=== PATIENT | female | born 1955 | race Caucasian/White ===

== ENCOUNTER 2018-08-21 21:14 | Inpatient (IN) | payer BC, OTHER ==
[~2018-08-21] VITALS: Ht 180.3 cm; Wt 102.7 kg
--- NOTE | 2018-08-21 21:49 | NUR ---
Pt. BIB from [facility] for Medical Clearance to voluntarily admit to MHU, pt. sitting in bed accompanied by , bed in low position, wheels locked,
--- NOTE | 2018-08-21 22:15 | NUR ---
Rad. tech. at bedside for CXR
[2018-08-21] MEDS ORDERED: MECL-102 PO (22:17)
[2018-08-21] MEDS ORDERED: TIOT18CA3 IH (22:17)
[2018-08-21] MEDS ORDERED: METO25CA PO (22:17)
[2018-08-21] MEDS ORDERED: ISOS10TA2 PO (22:17)
[2018-08-21] MEDS ORDERED: NEFA100T PO (22:17)
[2018-08-21] MEDS ORDERED: AMLO5TAB9 PO ×2 (22:17)
[2018-08-21] MEDS ORDERED: VITAMIN D3 PO (22:17)
[2018-08-21] MEDS ORDERED: MAGN400T40 PO (22:17)
[2018-08-21] MEDS ORDERED: APIX5TAB PO (22:17)
[2018-08-21] MEDS ORDERED: TOPI25TA49 PO (22:17)
[2018-08-21] MEDS ORDERED: IRBE300T19 PO (22:17)
[2018-08-21] MEDS ORDERED: GLUC15006 PO (22:17)
[2018-08-21] MEDS ORDERED: FLUT16SP NS (22:17)
[2018-08-21] MEDS ORDERED: FURO-152 PO (22:17)
[2018-08-21] MEDS ORDERED: MULT-213 PO (22:17)
[2018-08-21] MEDS ORDERED: SPIR25TA PO (22:17)
[2018-08-21] MEDS ORDERED: AMIO200T4 PO (22:17)
--- NOTE | 2018-08-21 22:54 | NUR ---
Pt. resting in bed w/ eyes open, awaiting Crisis Evaluation by Joshua Cano, bed in low position, at bedside, NAD
--- NOTE | 2018-08-21 23:07 | NUR ---
Joshua Cano LCSW at bedside for Psych. Eval.,
--- NOTE | 2018-08-21 23:48 | NUR ---
Report given to Maryann, Inventory/belonging sheet filled out and signed by pt., chart copied and sent over w/ all belongings, pt. taken off unit via stretcher to admit to MHU,
[2018-08-21 23:55] VITALS: BP 142/69
[2018-08-22] MEDS ORDERED: MAGNESIUM HYDROXIDE 30 ML LIQUID UDC PO PRN
[2018-08-22] MEDS ORDERED: MAG HYDROX/AL HYDROX/SIMETH 30 ML LIQUID UDC PO PRN
--- NOTE | 2018-08-22 01:42 | NUR ---
Patient arrived via gurney from the ER department at 2345. Patient alert/oriented x 2-3. Patient denies hallucinations at this time, however stated has had some in the past. Patient is easily irritable and agitated. Patient was able to answer questions and sign admission paper. Patient stated that her is looking for an apartment and she has been living in a hotel prior to her admission at [facility]. Patient states she does not want anybody to know that she is her until she speaks to her psychiatrist. Patient states wanting to place her self voluntary to receive proper care to manage her anger to the point of blackening out. Patient prefers having female nurses as "does not take kindly to a male telling her what to do." Patient denies Suicidal Ideation, patient denies pain at this time, will continue to monitor. Patient has edema x1 to bilateral lower extremities. Skin intact. Patient oriented to room. No aggressive or combative behavior noted will continue to monitor and redirect as needed. Bed in lowest position, bed locked, and bed alarm on while in bed. Edy FERMIN notified to reconcile medication, Edy FERMIN spoke with Cleopatra MCCOY.
[2018-08-22 07:30] VITALS: BP 146/78
[2018-08-22] MEDS ORDERED: TEMAZEPAM 7.5 MG CAPSULE PO PRN (09:00)
[2018-08-22] MEDS: LORAZEPAM 0.5 MG TABLET PO PRN (09:07)
[2018-08-22] MEDS: ACETAMINOPHEN 325 MG TABLET PO PRN (09:08)
[2018-08-22] MEDS ORDERED: LORAZEPAM 2 MG/1 ML VIAL IM ONE (10:30)
[2018-08-22] MEDS ORDERED: BENZTROPINE MESYLATE 2 MG/2 ML AMPUL IM SCH (10:30)
[2018-08-22] MEDS ORDERED: HALOPERIDOL LACTATE 5 MG/1 ML VIAL IM ONE (10:30)
[2018-08-22] MEDS ORDERED: AMLODIPINE 5 MG TABLET PO PRN (12:45)
[2018-08-22] MEDS ORDERED: Medication Not On Formulary EA (Metoprolol Succinate (Kapspargo Sprinkle) 25 MG) PO SCH (13:00)
[2018-08-22 16:10] VITALS: BP 115/67
--- NOTE | 2018-08-22 16:40 | NUR ---
UR Note: Avionic Technician faxed clinical information to assigned Director Trial Catalina Brandt at [employer] ( Ext [phone]; ). Avionic Technician updated Director Trial verbally regarding clinicals, patient receiving IM, and newly status of 5150 hold for grave disability. SW awaiting call for authorization.
[2018-08-22] MEDS: FLUTICASONE PROP NASAL SPRAY 16 GM BOTTLE NS SCH (17:14)
--- NOTE | 2018-08-22 18:01 | NUR ---
received patient is labile, non-compliant with staffs pressure speech and challenge attitude. IM given in am due to patient is agitated and aggressive unable to re-direction .
--- NOTE | 2018-08-22 20:01 | NUR ---
Report given to Oly MCCOY. Patient awake, alert sitting up in bed. Transferring to 3rd floor for safe usage of C-pap machine. Patient verbalized understanding of transfer. V.S stable at this time. No acute distress.
[2018-08-22 20:26] VITALS: BP 154/75
[2018-08-22] MEDS: AMLODIPINE 5 MG TABLET PO SCH (21:45)
[2018-08-22] MEDS: DIVALPROEX 250 MG TABLET.DR PO SCH (21:45)
[2018-08-22] MEDS: ISOSORBIDE DINITRATE 10 MG TABLET PO SCH (22:44)
[2018-08-22] MEDS: METOPROLOL SUCCINATE XL 25 MG TAB.SR.24H PO SCH (22:44)
--- NOTE | 2018-08-23 05:41 | NUR ---
Patient was calm and cooperative t/o shift. Sitter at bedside. Med compliant. Slept about 9 hours. No changes t/o shift. Patient is asleep at the moment with no acute distress. Safety and comfort measures maintained t/o shift. Vital signs stable. All meds given as ordered. All needs met.
[2018-08-23] MEDS: PANTOPRAZOLE SODIUM 40 MG TABLET.DR PO SCH (06:12)
[2018-08-23] MEDS: ISOSORBIDE DINITRATE 10 MG TABLET PO SCH ×3 (06:12→21:26)
[2018-08-23] MEDS: METOPROLOL SUCCINATE XL 25 MG TAB.SR.24H PO SCH ×3 (06:13→21:26)
[2018-08-23 06:29] LABS: BASOPHILS % (AUTO) 0.6 % (0.0-2.0); EOSINOPHILS # (AUTO) 0.2 K/uL (0.0-0.7); EOSINOPHILS % (AUTO) 2.9 % (0.0-7.0); HEMATOCRIT 39.1 % (31.2-41.9); HEMOGLOBIN 13.2 g/dL (10.9-14.3); LYMPHOCYTES # (AUTO) 1.9 K/uL (20.0-40.0); LYMPHOCYTES % (AUTO) 28.1 % (20.5-51.5); MEAN CORPUSCULAR HEMOGLOBIN 31.8 uug (24.7-32.8); MEAN CORPUSCULAR HGB CONC 34 g/dL (32.3-35.6); MEAN CORPUSCULAR VOLUME 94.3 fL (75.5-95.3); MONOCYTES # (AUTO) 0.7 K/uL (2.0-10.0); MONOCYTES % (AUTO) 10.4 % (0.0-11.0); NEUTROPHILS # (AUTO) 3.8 K/uL (1.8-8.9); PLATELET COUNT (AUTO) 267 K/uL (179-408); RED BLOOD CELL COUNT(AUTO) 4.14 MIL/uL (3.63-4.92); WHITE BLOOD COUNT (AUTO) 6.6 K/uL (3.8-11.8)
[2018-08-23 06:37] LABS: CREATININE 1.7 mg/dL (0.6-1.3); MAGNESIUM 1.9 mg/dL (1.8-2.4); POTASSIUM 4.5 mmol/L (3.5-5.1)
[2018-08-23 08:00] VITALS: BP 140/69
[2018-08-23] MEDS: AMLODIPINE 5 MG TABLET PO SCH ×2 (08:07→20:52)
[2018-08-23] MEDS: MAGNESIUM OXIDE 400 MG TABLET PO SCH (08:07)
[2018-08-23] MEDS: MECLIZINE HCL 25 MG TABLET PO SCH (08:07)
[2018-08-23] MEDS: DIVALPROEX 250 MG TABLET.DR PO SCH ×2 (08:07→20:52)
[2018-08-23] MEDS: SPIRONOLACTONE 25 MG TABLET PO SCH (08:07)
[2018-08-23] MEDS: AMIODARONE HCL 200 MG TABLET PO SCH (08:07)
[2018-08-23] MEDS: FUROSEMIDE 20 MG TABLET PO SCH (08:07)
[2018-08-23] MEDS: FLUTICASONE PROP NASAL SPRAY 16 GM BOTTLE NS SCH ×2 (08:08→16:07)
[2018-08-23] MEDS: LOSARTAN POTASSIUM 50 MG TABLET PO SCH (08:08)
[2018-08-23] MEDS: MULTIVIT, IRON, MIN NO. 8, FA TABLET PO SCH (08:08)
[2018-08-23] MEDS: LORAZEPAM 0.5 MG TABLET PO PRN (08:52)
[2018-08-23] MEDS ORDERED: GLUCOSAMINE HCL PO SCH (09:00)
[2018-08-23] MEDS ORDERED: Medication Not On Formulary EA (Multivitamins W-Minerals (Multivitamin With Minerals) 1 PO SCH (09:00)
[2018-08-23] MEDS ORDERED: VITAMIN D3 125 MCG PO SCH (09:00)
[2018-08-23] MEDS ORDERED: BENZTROPINE MESYLATE 2 MG/2 ML AMPUL IM ONE (10:30)
[2018-08-23] MEDS: IPRATROPIUM BROMIDE 0.5 MG/2.5 ML NEBU NEB SCH ×2 (13:35→20:57)
[2018-08-23 14:14] VITALS: BP 142/71
--- NOTE | 2018-08-23 14:16 | NUR ---
UR NOTE: Addiction Therapist provided verbal clinical update to Occupational Therapy TechnicianCatalina, at [facility] ( Ext [phone]; ). wafer production lead worker awaiting further authorization. Reference #[id number]
--- NOTE | 2018-08-23 17:06 | NUR ---
Initial Discharge Planning: Patient is a 63 year old female who currently lives at home with her [[facility], [place] [address]; ]. Patient and plan on patient returning home when she is ready for discharge. Active Directory Specialist will continue to meet with patient and collaborate with patient, family, and MD on a safe and proper discharge.
--- NOTE | 2018-08-23 17:09 | NUR ---
UR Note: Per Catalina Brandt, assigned Julius Barrel Straightener [ Ext. [phone]]- patient is authorized for stay from 08/21/18 to 08/24/18 with next review scheduled for 08/25/18. Ref: [id number]. Senior Compliance Analyst to follow up.
[2018-08-24] MEDS: IPRATROPIUM BROMIDE 0.5 MG/2.5 ML NEBU NEB SCH ×4 (01:25→21:59)
--- NOTE | 2018-08-24 05:39 | NUR ---
Patient was calm and cooperative t/o shift. Remains A/O x 3. Med compliant. Sitter at bedside. Safety and comfort measures maintained t/o shift. Vital signs stable. All meds given as ordered. All needs met.
[2018-08-24] MEDS: PANTOPRAZOLE SODIUM 40 MG TABLET.DR PO SCH (06:00)
[2018-08-24] MEDS: ISOSORBIDE DINITRATE 10 MG TABLET PO SCH ×3 (06:00→21:07)
[2018-08-24] MEDS: METOPROLOL SUCCINATE XL 25 MG TAB.SR.24H PO SCH ×3 (06:01→21:07)
[2018-08-24] MEDS: LORAZEPAM 0.5 MG TABLET PO PRN (06:01)
[2018-08-24 06:20] VITALS: BP 139/79
--- NOTE | 2018-08-24 07:20 | NUR ---
RECEIVED PATIENT SITTING IN THE CHAIR READING HER BOOK, PATIENT ALERT AND ORIENTED X3 AND ABLE TO MAKE NEEDS KNOWN. WITH NO SOB AND NO C/O PAIN AT THIS TIME. WILL CONTINUE TO MONITOR AND CONTINUE TREATMENT PLAN.
[2018-08-24 07:26] VITALS: BP 151/74
[2018-08-24] MEDS: MECLIZINE HCL 25 MG TABLET PO SCH (08:31)
[2018-08-24] MEDS: MAGNESIUM OXIDE 400 MG TABLET PO SCH (08:31)
[2018-08-24] MEDS: MULTIVIT, IRON, MIN NO. 8, FA TABLET PO SCH (08:31)
[2018-08-24] MEDS: DIVALPROEX 250 MG TABLET.DR PO SCH ×2 (08:31→20:02)
[2018-08-24] MEDS: SPIRONOLACTONE 25 MG TABLET PO SCH (08:31)
[2018-08-24] MEDS: FUROSEMIDE 20 MG TABLET PO SCH (08:31)
[2018-08-24] MEDS: AMIODARONE HCL 200 MG TABLET PO SCH (08:33)
[2018-08-24] MEDS: AMLODIPINE 5 MG TABLET PO SCH ×2 (08:35→20:02)
[2018-08-24] MEDS: LOSARTAN POTASSIUM 50 MG TABLET PO SCH (08:35)
[2018-08-24] MEDS: FLUTICASONE PROP NASAL SPRAY 16 GM BOTTLE NS SCH ×2 (08:55→17:04)
[2018-08-24 14:16] VITALS: BP 120/70
--- NOTE | 2018-08-24 18:27 | NUR ---
PATIENT IS IN 14 DAY HOLD. SHE IS SITTING IN THE CHAIR READING HER BOOK, PATIENT ALERT AND ORIENTED X3 AND ABLE TO MAKE NEEDS KNOWN. WITH NO SOB AND NO C/O PAIN AT THIS TIME. DENIES SI/HI AT THIS TIME. WILL CONTINUE TO MONITOR AND CONTINUE TREATMENT PLAN.
[2018-08-24 19:37] VITALS: BP 138/71
--- NOTE | 2018-08-24 19:45 | NUR ---
RECEIVED PATIENT AWAKE, SITTING IN CHAIR AT BEDSIDE. PATIENT IS A/O X4. VERY PLEASANT AND APPROPRIATE WHEN APPROACHED. VS WNL. PATIENT DENIES ANY PAIN OR DISCOMFORT. NO RESP. DISTRESS NOTED. PROVIDED SAFE AND THERAPEUTIC ENVIRONMENT. ALL NEEDS ATTENDED. WILL CONTINUE TO MONITOR AND ASSESS.
[2018-08-24] MEDS: ACETAMINOPHEN 325 MG TABLET PO PRN (23:29)
--- NOTE | 2018-08-24 23:30 | NUR ---
PATIENT AWAKE IN BED, C/O HEADACHE. PATIENT GIVEN TYLENOL 650MG PO PRN FOR MILD PAIN. ALL NEEDS ATTENDED. WILL CONTINUE TO MONITOR AND ASSESS.
--- NOTE | 2018-08-25 00:03 | NUR ---
PATIENT AWAKE IN BED. TYLENOL EFFECTIVE. NO C/O OF HEADACHE AT THIS TIME. PATIENT IS RESTLESS AND UNABLE TO SLEEP. OFFERED PATIENT SLEEPING PILL, BUT PATIENT REFUSED. ALL NEEDS ATTENDED, WILL CONTINUE TO MONITOR.
[2018-08-25] MEDS: IPRATROPIUM BROMIDE 0.5 MG/2.5 ML NEBU NEB SCH ×4 (01:30→20:20)
--- NOTE | 2018-08-25 05:34 | NUR ---
PATIENT AWAKE, SITTING IN CHAIR AT BEDSIDE. SLEPT 4 HOURS. ALL NEEDS ATTENDED.
[2018-08-25] MEDS: ISOSORBIDE DINITRATE 10 MG TABLET PO SCH ×3 (06:14→21:00)
[2018-08-25] MEDS: METOPROLOL SUCCINATE XL 25 MG TAB.SR.24H PO SCH ×3 (06:15→21:00)
[2018-08-25] MEDS: PANTOPRAZOLE SODIUM 40 MG TABLET.DR PO SCH (06:15)
[2018-08-25 06:43] LABS: BASOPHILS % (AUTO) 0.5 % (0.0-2.0); EOSINOPHILS # (AUTO) 0.1 K/uL (0.0-0.7); EOSINOPHILS % (AUTO) 1.6 % (0.0-7.0); HEMATOCRIT 40.1 % (31.2-41.9); HEMOGLOBIN 13.3 g/dL (10.9-14.3); LYMPHOCYTES # (AUTO) 1.4 K/uL (20.0-40.0); LYMPHOCYTES % (AUTO) 19.2 % (20.5-51.5); MEAN CORPUSCULAR HGB CONC 33 g/dL (32.3-35.6); MEAN CORPUSCULAR VOLUME 93.2 fL (75.5-95.3); MONOCYTES # (AUTO) 0.8 K/uL (2.0-10.0); NEUTROPHILS # (AUTO) 5.2 K/uL (1.8-8.9); NEUTROPHILS % (AUTO) 68.7 % (38.5-71.5); PLATELET COUNT (AUTO) 303 K/uL (179-408); RED BLOOD CELL COUNT(AUTO) 4.31 MIL/uL (3.63-4.92); WHITE BLOOD COUNT (AUTO) 7.5 K/uL (3.8-11.8)
[2018-08-25 06:52] LABS: CREATININE 1.7 mg/dL (0.6-1.3); MAGNESIUM 1.9 mg/dL (1.8-2.4); PHOSPHOROUS 4.1 mg/dL (2.5-4.9); POTASSIUM 4.5 mmol/L (3.5-5.1)
[2018-08-25 07:10] VITALS: BP 125/70
[2018-08-25] MEDS: SPIRONOLACTONE 25 MG TABLET PO SCH (08:13)
[2018-08-25] MEDS: FUROSEMIDE 20 MG TABLET PO SCH (08:13)
[2018-08-25] MEDS: FLUTICASONE PROP NASAL SPRAY 16 GM BOTTLE NS SCH ×2 (08:13→17:17)
[2018-08-25] MEDS: MECLIZINE HCL 25 MG TABLET PO SCH (08:13)
[2018-08-25] MEDS: MAGNESIUM OXIDE 400 MG TABLET PO SCH (08:14)
[2018-08-25] MEDS: DIVALPROEX 250 MG TABLET.DR PO SCH ×2 (08:14→20:25)
[2018-08-25] MEDS: AMIODARONE HCL 200 MG TABLET PO SCH (08:17)
[2018-08-25] MEDS: MULTIVIT, IRON, MIN NO. 8, FA TABLET PO SCH (08:18)
[2018-08-25] MEDS: LOSARTAN POTASSIUM 50 MG TABLET PO SCH (08:18)
[2018-08-25] MEDS: AMLODIPINE 5 MG TABLET PO SCH ×2 (08:18→20:25)
--- NOTE | 2018-08-25 08:27 | NUR ---
Patient awake, alert, sitting on the chair, not in any form of distress. She denies any pain or discomfort. Compliant with medications. 1:1 sitter at bedside.
--- NOTE | 2018-08-25 10:45 | NUR ---
Recreational therapist Betzy came to get patient for activities but patient refused.
[2018-08-25] MEDS: ACETAMINOPHEN 325 MG TABLET PO PRN ×2 (11:02→21:00)
[2018-08-25 14:39] VITALS: BP 145/76
--- NOTE | 2018-08-25 17:08 | NUR ---
UR NOTE: Hydramatic Mechanic faxed clinical information to assigned Air Pollution Compliance Inspector Catalina Brandt at [facility] ( Ext [phone]; ). Hydramatic Mechanic updated Air Pollution Compliance Inspector verbally regarding clinicals and update discharge plan. SW awaiting call for authorization.
--- NOTE | 2018-08-25 19:30 | NUR ---
received patient in bed and confused. no signs of acute distress. 1:1 sitter at bedside for safety. safety and comfort measures provided. will continue to monitor patient.
[2018-08-25 19:45] VITALS: BP 153/84
--- NOTE | 2018-08-25 21:00 | NUR ---
patient c/o of anxiety and assessment showed agitation as well expressing her emotions about her court case today and worried that she is on a hold. when re-assessing patient after pulling Ativan from [facility] patient appeared less anxious and refused Ativan at this time. Temazepam was requested from patient to help her sleep. Ativan returned to [facility].
--- NOTE | 2018-08-25 23:00 | NUR ---
report given to shed boss nurse for continuation of care. v/s stable. no signs of acute distress. safety and comfort measures provided. sitter at bedside. morning nurse contacted Dr. Stacy regarding Sodium level at 129. Dr. Stacy ordered [facility] for morning labs to re-check Sodium levels.
[2018-08-26] MEDS: IPRATROPIUM BROMIDE 0.5 MG/2.5 ML NEBU NEB SCH ×4 (00:54→19:37)
[2018-08-26 05:17] VITALS: BP 161/82
[2018-08-26] MEDS: ACETAMINOPHEN 325 MG TABLET PO PRN ×2 (05:21→22:13)
[2018-08-26] MEDS: METOPROLOL SUCCINATE XL 25 MG TAB.SR.24H PO SCH ×3 (05:21→22:13)
[2018-08-26] MEDS: ISOSORBIDE DINITRATE 10 MG TABLET PO SCH ×3 (05:21→22:12)
[2018-08-26 05:44] LABS: BASOPHILS % (AUTO) 0.7 % (0.0-2.0); EOSINOPHILS # (AUTO) 0.1 K/uL (0.0-0.7); EOSINOPHILS % (AUTO) 1.8 % (0.0-7.0); HEMATOCRIT 42.6 % (31.2-41.9); HEMOGLOBIN 14.5 g/dL (10.9-14.3); LYMPHOCYTES # (AUTO) 2.1 K/uL (20.0-40.0); LYMPHOCYTES % (AUTO) 29.9 % (20.5-51.5); MEAN CORPUSCULAR HEMOGLOBIN 31.7 uug (24.7-32.8); MEAN CORPUSCULAR HGB CONC 34 g/dL (32.3-35.6); MONOCYTES # (AUTO) 0.7 K/uL (2.0-10.0); MONOCYTES % (AUTO) 10.2 % (0.0-11.0); NEUTROPHILS % (AUTO) 57.4 % (38.5-71.5); PLATELET COUNT (AUTO) 302 K/uL (179-408); RED BLOOD CELL COUNT(AUTO) 4.58 MIL/uL (3.63-4.92); WHITE BLOOD COUNT (AUTO) 6.9 K/uL (3.8-11.8)
[2018-08-26 05:54] LABS: CREATININE 1.8 mg/dL (0.6-1.3); PHOSPHOROUS 3.9 mg/dL (2.5-4.9); POTASSIUM 4.5 mmol/L (3.5-5.1)
[2018-08-26] MEDS: PANTOPRAZOLE SODIUM 40 MG TABLET.DR PO SCH (06:43)
--- NOTE | 2018-08-26 07:20 | NUR ---
Received Patient awake and verbally responsive, sitting comfortably on the chair. No signs of Distress noted. No complain of pain or discomfort. 1mto 1 sitter at bedside. denies Suicidal Ideation and verbalized that she feels Good.
[2018-08-26 07:35] VITALS: BP 157/78
[2018-08-26] MEDS: MECLIZINE HCL 25 MG TABLET PO SCH (08:36)
[2018-08-26] MEDS: MAGNESIUM OXIDE 400 MG TABLET PO SCH (08:36)
[2018-08-26] MEDS: DIVALPROEX 250 MG TABLET.DR PO SCH ×2 (08:36→22:12)
[2018-08-26] MEDS: AMIODARONE HCL 200 MG TABLET PO SCH (08:36)
[2018-08-26] MEDS: FUROSEMIDE 20 MG TABLET PO SCH (08:36)
[2018-08-26] MEDS: SPIRONOLACTONE 25 MG TABLET PO SCH ×3 (08:37→08:45)
[2018-08-26] MEDS: LOSARTAN POTASSIUM 50 MG TABLET PO SCH (08:37)
[2018-08-26] MEDS: AMLODIPINE 5 MG TABLET PO SCH ×2 (08:37→20:11)
[2018-08-26] MEDS: MULTIVIT, IRON, MIN NO. 8, FA TABLET PO SCH (08:37)
[2018-08-26] MEDS: FLUTICASONE PROP NASAL SPRAY 16 GM BOTTLE NS SCH ×2 (08:46→17:46)
[2018-08-26 11:12] VITALS: BP 148/75
[2018-08-26] MEDS: MECLIZINE HCL 25 MG TABLET PO PRN (14:39)
[2018-08-26 16:00] VITALS: BP 139/72
--- NOTE | 2018-08-26 18:02 | NUR ---
Patient is awake and verbally responsive. No signs of Respiratory distress noted. patient with 1:1 sitter, Assisted with ADL. No Suicidal Ideation throughout this day. All needs attended and met. All medications given as ordered. Will Endorse care to oncoming Nurse
[2018-08-26 19:13] VITALS: BP 161/87
--- NOTE | 2018-08-26 20:00 | NUR ---
RECD PT IN BED, RESTING QUIETLY, NO SSX OF ACUTE DISTRESS, NEDDS ATTENDED TO.VITAL SIGNS TAKEN AND RECORDED, BP ON THE HIGH SIDE 165/85, NORVASC 5 MG GIVEN, NO C/O OF HEAD ACHE. MONITORED CLOSELY, ON 14 DAY HOLD , NO SUICIDAL IDEATION NOTED. UP TO BR , VOIDED FREELY WELL,STILL ON 1:1 SITTER. ABLE TO EXPRESS NEEDS .
--- NOTE | 2018-08-26 22:32 | NUR ---
PT COMPLAINED OF HEADACHE, REQUESTED TYLENOL 650 MG AND GIVEN.
[2018-08-27] MEDS: IPRATROPIUM BROMIDE 0.5 MG/2.5 ML NEBU NEB SCH ×4 (01:15→19:45)
--- NOTE | 2018-08-27 01:31 | NUR ---
SLEPT INTERMITTENTLY, NO VOICED COMPLAINTS, CONTINUES TO BE ON 1:1 SITTER. USING C PAP W/O ANY PROBLEMS. VERBALLY RESPONSIVE.
--- NOTE | 2018-08-27 04:37 | NUR ---
UP TO BR, C PAP OFF, VITAL SIGNS TAKEN AND RECORDED.VOMITED SMALL AMT OF GASTRIC CONTENTS,PT STATED THAT SHE MUST HAVE MOVED SO QUICKLY THAT CAUSE HER TO VOMIT, TOOK SOME SALTINE CRACKERS AND RESTED ON A BEDSIDE CHAIR.
[2018-08-27] MEDS: ISOSORBIDE DINITRATE 10 MG TABLET PO SCH ×3 (05:59→21:11)
[2018-08-27] MEDS: METOPROLOL SUCCINATE XL 25 MG TAB.SR.24H PO SCH ×3 (05:59→21:10)
[2018-08-27] MEDS: PANTOPRAZOLE SODIUM 40 MG TABLET.DR PO SCH (06:01)
--- NOTE | 2018-08-27 06:05 | NUR ---
AMBULATED AROUND THE UNIT W/ SITTER, GAIT STEADY, NO FURTHER C/O VOMITING.RESTING FAIRLY WELL IN BED. DUE MEDS TAKEN W/O ANY PROBLEMS.
[2018-08-27 06:11] LABS: CREATININE 1.6 mg/dL (0.6-1.3); MAGNESIUM 2.1 mg/dL (1.8-2.4); PHOSPHOROUS 4.3 mg/dL (2.5-4.9); POTASSIUM 4.6 mmol/L (3.5-5.1)
[2018-08-27 06:14] LABS: BASOPHILS % (AUTO) 0.5 % (0.0-2.0); EOSINOPHILS # (AUTO) 0.1 K/uL (0.0-0.7); EOSINOPHILS % (AUTO) 2.1 % (0.0-7.0); HEMATOCRIT 40.3 % (31.2-41.9); HEMOGLOBIN 13.6 g/dL (10.9-14.3); LYMPHOCYTES # (AUTO) 1.8 K/uL (20.0-40.0); LYMPHOCYTES % (AUTO) 25.9 % (20.5-51.5); MEAN CORPUSCULAR HEMOGLOBIN 31.5 uug (24.7-32.8); MEAN CORPUSCULAR HGB CONC 34 g/dL (32.3-35.6); MEAN CORPUSCULAR VOLUME 93.2 fL (75.5-95.3); MONOCYTES # (AUTO) 0.7 K/uL (2.0-10.0); MONOCYTES % (AUTO) 10.4 % (0.0-11.0); NEUTROPHILS # (AUTO) 4.3 K/uL (1.8-8.9); NEUTROPHILS % (AUTO) 61.1 % (38.5-71.5); PLATELET COUNT (AUTO) 292 K/uL (179-408); RED BLOOD CELL COUNT(AUTO) 4.32 MIL/uL (3.63-4.92); WHITE BLOOD COUNT (AUTO) 7.1 K/uL (3.8-11.8)
[2018-08-27 07:38] VITALS: BP 151/71
[2018-08-27] MEDS: MAGNESIUM OXIDE 400 MG TABLET PO SCH (07:55)
[2018-08-27] MEDS: LOSARTAN POTASSIUM 50 MG TABLET PO SCH (07:55)
[2018-08-27] MEDS: MULTIVIT, IRON, MIN NO. 8, FA TABLET PO SCH (07:56)
[2018-08-27] MEDS: DIVALPROEX 250 MG TABLET.DR PO SCH ×2 (07:56→21:10)
[2018-08-27] MEDS: FUROSEMIDE 20 MG TABLET PO SCH (07:56)
[2018-08-27] MEDS: AMIODARONE HCL 200 MG TABLET PO SCH (07:56)
[2018-08-27] MEDS: AMLODIPINE 5 MG TABLET PO SCH ×2 (07:57→21:10)
[2018-08-27] MEDS: FLUTICASONE PROP NASAL SPRAY 16 GM BOTTLE NS SCH ×2 (07:59→17:52)
--- NOTE | 2018-08-27 08:00 | NUR ---
Pt cooperative on taking her pills. Noted slow hear rate from the vital signs. Discussed with pt that if heart rate remains slow amn below 60 during 1400 that toprolol xl will be held secondary to slow heart rate. Pt agreeable with plan.
[2018-08-27] MEDS: MECLIZINE HCL 25 MG TABLET PO PRN ×2 (08:04→17:53)
[2018-08-27 11:31] VITALS: BP 136/62
[2018-08-27 15:33] VITALS: BP 142/70
[2018-08-27 19:27] VITALS: BP 149/63
--- NOTE | 2018-08-27 19:50 | NUR ---
Received patient awake and alert in bed receiving breathing treatment and tolerating well with sitter at bedside. Patient is able to make needs known. No signs of acute distress noted. No complaints of pain or SOB at this time. Safety measures initiated, will continue to monitor.
[2018-08-27] MEDS: ACETAMINOPHEN 325 MG TABLET PO PRN (21:45)
[2018-08-28] MEDS: IPRATROPIUM BROMIDE 0.5 MG/2.5 ML NEBU NEB SCH ×2 (01:30→07:40)
[2018-08-28] MEDS: ACETAMINOPHEN 325 MG TABLET PO PRN (05:00)
[2018-08-28 05:43] VITALS: BP 149/75
--- NOTE | 2018-08-28 05:49 | NUR ---
Patient slept well throughout night with 1:1 sitter at bedside. Medications given as ordered. Patient stated she is feeling much better. Complained of headaches with PRN Tylenol given and was effective. Safety measures given. Will endorse to next shift.
[2018-08-28] MEDS: ISOSORBIDE DINITRATE 10 MG TABLET PO SCH (06:12)
[2018-08-28] MEDS: PANTOPRAZOLE SODIUM 40 MG TABLET.DR PO SCH (06:13)
[2018-08-28] MEDS: METOPROLOL SUCCINATE XL 25 MG TAB.SR.24H PO SCH (06:13)
[2018-08-28] MEDS: FUROSEMIDE 20 MG TABLET PO SCH (08:03)
[2018-08-28 08:04] VITALS: BP 120/74
[2018-08-28] MEDS: MECLIZINE HCL 25 MG TABLET PO PRN (08:04)
[2018-08-28] MEDS: DIVALPROEX 250 MG TABLET.DR PO SCH (08:04)
[2018-08-28] MEDS: MAGNESIUM OXIDE 400 MG TABLET PO SCH (08:04)
[2018-08-28] MEDS: AMIODARONE HCL 200 MG TABLET PO SCH (08:04)
[2018-08-28] MEDS: AMLODIPINE 5 MG TABLET PO SCH (08:04)
[2018-08-28] MEDS: MULTIVIT, IRON, MIN NO. 8, FA TABLET PO SCH (08:04)
[2018-08-28] MEDS: LOSARTAN POTASSIUM 50 MG TABLET PO SCH (08:04)
[2018-08-28] MEDS: FLUTICASONE PROP NASAL SPRAY 16 GM BOTTLE NS SCH (08:05)
--- NOTE | 2018-08-28 10:13 | NUR ---
Discharge Note: Patient will be discharged back home [[facility] [place] [address]; ] today. Patient is A&Ox4 and denies suicidal ideation. Cutting Machine Fixer informed patient spouse Carter Lambert, of discharge plan [[phone]] and he is agreeable. Transportation will be provided by spouse at 12:00pm. Cutting Machine Fixer will follow up with patient regarding outcome of IOP referrals to [facility] in [place] and [place]. Patient was given outpatient mental health resources to [facility] ([phone]); [facility] ([phone]), and the National Suicide Prevention Lifeline (National Suicide Prevention Lifeline ).
--- NOTE | 2018-08-28 11:04 | NUR ---
GPS: PATIENT WAS NOTIFIED REGARDING FIREARMS PROHIBITION AND RIGHT TO HEARING, PATIENT AGREE FOR HEARING FAMILY DAY CARER NOTIFIED
--- NOTE | 2018-08-28 11:04 | NUR ---
FIREARMS REPORT: Biology Faculty Member completed and submitted a [employer] firearms report for [address] Disability certification. A copy of report has been placed in patient chart.
--- NOTE | 2018-08-28 11:50 | NUR ---
Pt is in no acute distress. Discharge instructions given to patient. Pt verbalized understanding. Pt to f/u with her own psychiatrist within 2 weeks. Pt has no SI and HI noted. PT has no audio and visual hallucinations. Hold DC per psychiatrist. Valuables and medications given back to patient. Pt signed valuables forms. Pt refused vaccinations. No sob noted.
== END 2018-08-28 12:35 | disposition home or self-care (01) | DRG 885 ==
LOC: ER 21:17 → GPS 23:26 → GPSOV3 08-22 21:15
PROVIDERS: ADMIT Psychiatry & Neurology Psychosomatic Medicine; ATTEND Internal Medicine
DX: F31.60 Bipolar disorder, current episode mixed, unspecified (principal); F01.50 Vascular dementia, unspecified severity, without behavioral disturbance, psychotic disturbance, mood disturbance, and anxiety; N18.9 Chronic kidney disease, unspecified; N17.9 Acute kidney failure, unspecified; I13.0 Hypertensive heart and chronic kidney disease with heart failure and stage 1 through stage 4 chronic kidney disease, or unspecified chronic kidney disease; J44.9 Chronic obstructive pulmonary disease, unspecified; I48.91 Unspecified atrial fibrillation; Z79.01 Long term (current) use of anticoagulants; I50.9 Heart failure, unspecified; Z87.820 Personal history of traumatic brain injury; Z87.891 Personal history of nicotine dependence; T50.1X5A Adverse effect of loop [high-ceiling] diuretics, initial encounter; Y92.009 Unspecified place in unspecified non-institutional (private) residence as the place of occurrence of the external cause; Z79.899 Other long term (current) drug therapy; I44.7 Left bundle-branch block, unspecified; Z91.012 Allergy to eggs; Z91.011 Allergy to milk products; Z86.69 Personal history of other diseases of the nervous system and sense organs
CPT/HCPCS: 36415; 71045; 80164; 83735; 84100; 84443; 85025; 93005; 94640; 94664; A4663; J0515; J1630; J2060; J3490; J3535; J3590; J8597